=== PATIENT | female | born 1965 | race Caucasian/White ===

== ENCOUNTER → 2017-04-09 | Outpatient (CLI) | payer OTHER | LOC: BRMIMAGING 15:05 | PROVIDERS: ATTEND Obstetrics & Gynecology | DX: Z12.31 Encounter for screening mammogram for malignant neoplasm of breast (principal) | CPT/HCPCS: G0202 ==

== ENCOUNTER → 2018-04-13 | Outpatient (CLI) | payer OTHER | LOC: BRMIMAGING 15:00 | PROVIDERS: ATTEND Obstetrics & Gynecology | DX: Z12.31 Encounter for screening mammogram for malignant neoplasm of breast (principal); Z80.3 Family history of malignant neoplasm of breast ==

== ENCOUNTER → 2019-04-14 | Outpatient (CLI) | payer OTHER | LOC: BRMIMAGING 14:48 ==